=== PATIENT | male | born 1990 | race African-American/Black ===

== ENCOUNTER 2020-07-03 10:26 | Emergency (ER) | payer OTHER ==
[~2020-07-03] VITALS: Ht 185.4 cm; Wt 90.7 kg
[2020-07-03] MEDS ORDERED: IBUPROFEN 800800 M1 PO (11:43)
[2020-07-03] MEDS ORDERED: FLEXERIL PO (11:43)
[2020-07-03 11:49] VITALS: BP 122/95
== END 2020-07-03 11:49 | disposition home or self-care (01) ==
LOC: ER 10:26
DX: S46.911A Strain of unspecified muscle, fascia and tendon at shoulder and upper arm level, right arm, initial encounter (principal); M54.2 Cervicalgia; M54.9 Dorsalgia, unspecified; V89.2XXA Person injured in unspecified motor-vehicle accident, traffic, initial encounter; Y93.I9 Activity, other involving external motion; Y92.488 Other paved roadways as the place of occurrence of the external cause; Y99.8 Other external cause status

== ENCOUNTER 2020-08-26 07:59 | Emergency (ER) | payer OTHER ==
[~2020-08-26] VITALS: Ht 185.4 cm; Wt 95.3 kg
[~2020-08-26 07:59] MED LIST: FLEXERIL PO; IBUPROFEN 800800 M1 PO
[2020-08-26 08:49] LABS: ABSOLUTE NEUTROPHILS 4.9 thou/uL (1.4-8.2); BASOPHILS 1.4 % (0.0-2.0); EOSINOPHILS 5.9 % (0.0-3.0); HEMATOCRIT 44.3 % (42.0-52.0); HEMOGLOBIN 14.2 gm/dL (14.0-18.0); MCH 25.5 pg (26.0-34.0); MCV 79.7 fL (80.0-100.0); MONOCYTES 6.5 % (1.0-8.0); PLATELET COUNT 300 thou/uL (150-400); POLYS 59.2 % (36.0-66.0); RBC 5.56 mil/uL (4.50-6.00); RDW 15.5 % (10.5-14.5); WBC 8.4 thou/uL (4.0-11.0)
[2020-08-26 08:56] LABS: ANION GAP 7 mmol/L (7-16); BUN 10 mg/dL (7-18); CALCIUM 8.9 mg/dL (8.5-10.1); CHLORIDE 105 mmol/L (98-107); CO2 31 mmol/L (21-32); CREATININE 1.2 mg/dL (0.7-1.3); GLUCOSE 96 mg/dL (74-106); POTASSIUM 3.7 mmol/L (3.5-5.1); SODIUM 143 mmol/L (136-145)
[2020-08-26 09:02] LABS: ALBUMIN 3.8 g/dL (3.4-5.0); DIRECT BILIRUBIN < 0.1 mg/dL (<0.1-0.2); SGOT 36 U/L (15-37); SGPT 24 U/L (16-63); TOTAL BILIRUBIN 0.5 mg/dL (0.2-1.0)
[2020-08-26] MEDS ORDERED: ZOFRAN ODT4 MG PO (10:22)
[2020-08-26 10:39] VITALS: BP 111/74
== END 2020-08-26 10:39 | disposition home or self-care (01) ==
LOC: ER 07:59
PROVIDERS: Emergency Medicine
DX: R11.2 Nausea with vomiting, unspecified (principal); F17.210 Nicotine dependence, cigarettes, uncomplicated; Z72.89 Other problems related to lifestyle